=== PATIENT | male | born 1970 | race Caucasian/White ===

== ENCOUNTER 2018-12-30 18:34 | Emergency (ER) | payer BC ==
[2018-12-30] MEDS: ACETAMINOPHEN 325 MG TAB PO (22:06)
[2018-12-30] MEDS: IPRATROPIUM (NEB) 0.5 MG/2.5 ML AMP INH (22:19)
[2018-12-30] MEDS: ALBUTEROL 0.5% (NEB) 2.5 MG/0.5 ML AMP INH (22:19)
[2018-12-31 00:41] LABS: ADD MAN DIFF? NO
[2018-12-31 00:43] LABS: BASOPHILS % 0.2 % (0.0-2.0); HEMATOCRIT 39.8 % (42.0-52.0); HEMOGLOBIN 13.2 g/dl (14.0-18.0); LYMPHOCYTES # 1.2 10^3/ul (0.8-2.9); LYMPHOCYTES % 14.7 % (15.0-51.0); MEAN CORPUSCULAR HEMOGLOBIN 28.9 pg (29.0-33.0); MEAN CORPUSCULAR HGB CONC 33.2 g/dl (32.0-37.0); MEAN CORPUSCULAR VOLUME 87.3 fl (82.0-101.0); MEAN PLATELET VOLUME 9.4 fl (7.4-10.4); MONOCYTE # 0.7 10^3/ul (0.3-0.9); MONOCYTES % 8.9 % (0.0-11.0); NEUTROPHIL # 6.2 10^3/ul (1.6-7.5); NEUTROPHILS % 75.8 % (39.0-77.0); PLATELET COUNT 256 10^3/UL (140-415); RED BLOOD COUNT 4.56 10^6/ul (4.70-6.10); RED CELL DISTRIBUTION WIDTH 12.2 % (11.5-14.5)
[2018-12-31 00:43] LABS: WHITE BLOOD COUNT 8.2 10^3/ul (4.8-10.8)
[2018-12-31] MEDS: KETOROLAC 30 MG INJ IV (00:43)
[2018-12-31] MEDS: DEXAMETHASONE 10 MG/ML 1 ML INJ IV (00:43)
[2018-12-31 01:00] LABS: ANION GAP 10 (5-13); BLOOD UREA NITROGEN 10 mg/dl (7-20); CARBON DIOXIDE 26 mmol/L (21-31); CHLORIDE 103 mmol/L (97-110); CREATININE 0.94 mg/dl (0.61-1.24); Estimated GFR > 60 mL/min (>60); GLUCOSE 162 mg/dl (70-220); POTASSIUM 3.8 mmol/L (3.5-5.1); SODIUM 139 mmol/L (135-144)
[2018-12-31 01:12] LABS: TROPONIN-I < 0.012 ng/ml (0.000-0.120)
== END 2018-12-31 02:28 | disposition home or self-care (01) ==
LOC: FTE 12-31 02:28
DX: R50.9 Fever, unspecified (principal); E11.9 Type 2 diabetes mellitus without complications; J45.901 Unspecified asthma with (acute) exacerbation; R07.9 Chest pain, unspecified; R05 Cough
CPT/HCPCS: 36415; 71045; 80048; 82962; 84484; 85025; 87400; 93005; 94644; 96374; 96375; 99285-25

== ENCOUNTER 2019-01-03 14:47 | Emergency (ER) | payer BC ==
[2019-01-03] MEDS: ALBUTEROL/IPRATROPIUM (NEB) 3 ML AMP HHN (19:07)
== END 2019-01-03 21:21 | disposition home or self-care (01) ==
LOC: FTE 14:47
DX: J40 Bronchitis, not specified as acute or chronic (principal); J01.10 Acute frontal sinusitis, unspecified
CPT/HCPCS: 94664; 99283-25